=== PATIENT | male | born 1950 | race Caucasian/White ===

== ENCOUNTER 2016-06-13 09:31 | Outpatient (CLI) | payer OTHER, BC ==
--- NOTE | 2016-06-14 11:56 | DIAGNOSTIC IMAGING REPORT ---
PROCEDURE: CT THORAX WITH CONTRAST INDICATION: BORDERLINE ENLARGED MEDIASTINAL LYMPH NODES TECHNIQUE: 100 ml of Isovue 300 was injected intravenously and axial images were obtained of the chest with coronal and sagittal reformations. COMPARISON: Outside chest CT 04/22/2016 FINDINGS: Mildly prominent pretracheal, high right paratracheal, prevascular, AP window, precarinal, subcarinal, and bilateral hilar lymph nodes are seen. The thyroid gland is normal. Thoracic aorta is normal caliber with trace atherosclerotic calcification. The great vessels demonstrates normal branching pattern. The central pulmonary arteries are normal caliber. Heart size is normal. Mild coronary atherosclerosis. Occasional mitral annular calcification. No pericardial effusion. No mediastinal masses. The esophagus is normal in caliber without hiatal hernia. The airway is patent and branches normally. The lungs are clear. No pleural effusions or pneumothorax. There are partially imaged fractures involving the distal clavicle, coracoid process of the left scapula, and displaced and impacted fractures of the left ribs 1 through 12, many in two locations. Left-sided transverse process fractures L1-L3. There is moderate right renal atrophy. Images of the upper abdomen are otherwise normal. IMPRESSION: 1. Mildly prominent mediastinal and hilar lymph nodes but without pulmonary parenchymal findings. These have not significantly change since the previous study. This is nonspecific but can be chronic, post infectious/inflammatory, reaction to smoking, or evidence of chronic granulomatous disease such as sarcoidosis. Early lymphomatous change (or less likely other neoplastic change) is not excluded. Clinical correlation suggested. Follow-up contrast-enhanced chest CT in 6 months is recommended. 2. Extensive left-sided thoracic fractures, healing. 3. Interval resolution of left pneumothorax, left pleural effusion and tiny pulmonary parenchymal opacity previously noted.
== END 2016-06-13 23:00 ==
LOC: CT SRH 09:31
DX: R59.9 Enlarged lymph nodes, unspecified (principal)